=== PATIENT | female | born 1955 | race Caucasian/White ===

== ENCOUNTER → 2019-12-16 13:15 | Outpatient (CLI) | payer OTHER, SELFPAY ==
--- NOTE | ~2019-12-16 | XR_ITS ---
EXAMINATION: XR shoulder RT min 2V EXAM DATE: 12/16/2019 13:33 INDICATION: No known recent injury provided at this time. Pain of the right shoulder. TECHNIQUE: The following right shoulder projections obtained: frontal projection with internal rotati on, frontal projection with external rotation, Grashey, and axillary (4+ views). There is no prior s tudy for comparison. FINDINGS: No evidence of right shoulder rotator cuff calcific tendinosis. Mild glenohumeral, modera te acromioclavicular primary osteoarthritis. There are no acute fractures or dislocations identified. There is no subcutaneous gas. The soft tissue is unremarkable. There are no radiopaque foreign b odies. IMPRESSION: Mild to moderate right shoulder osteoarthritis. Reviewed, dictated and finalized at location A. AVER RUBBER
== END ==
PROVIDERS: Visit Provider Pain Medicine Interventional Pain Medicine
DX: G89.4 Chronic pain syndrome (principal); M19.011 Primary osteoarthritis, right shoulder
CPT/HCPCS: 73030

== ENCOUNTER → 2020-08-23 15:11 | Outpatient (CLI) | payer OTHER, SELFPAY ==
--- NOTE | ~2020-08-23 | XR_ITS ---
XR lumbar spine 2-3V 08/23/2020 15:51 Indication: Radiculopathy. Back pain. Procedure: 4 views lumbar spine Comparison: 07/24/2011 Findings: Study is significantly limited by patient body habitus. L4 and L5 no well visualized. There are surgical changes consistent with anterior fusion and discectomy at L3-4 and L4-5. Normal alignme nt. No gross fracture or malalignment. Pedicles intact. Impression: 1: Anterior lumbar fusion and discectomy at L3-4 and L4-5. Normal alignment. Reviewed, dictated and finalized at location A. Impression: 1: Anterior lumbar fusion and discectomy at L3-4 and L4-5. Normal alignment.
--- NOTE | ~2020-08-23 | XR_ITS ---
XR cervical spine 4-5V 08/23/2020 15:51 Indication: Radiculopathy Procedure: 4 view cervical spine Comparison: 11/22/2018 Findings: Straightening of cervical lordosis. There is mild multilevel facet hypertrophy. No fracture or traumatic malalignment. Small ventral osteophytes at multiple levels. No prevertebral soft tissue swelling. Odontoid process within normal limits. Impression: 1: Mild cervical spondylosis. Reviewed, dictated and finalized at location A. Impression: 1: Mild cervical spondylosis.
== END ==
PROVIDERS: Visit Provider Pain Medicine Interventional Pain Medicine
DX: M47.812 Spondylosis without myelopathy or radiculopathy, cervical region (principal); G89.4 Chronic pain syndrome; M54.16 Radiculopathy, lumbar region; Z98.1 Arthrodesis status
CPT/HCPCS: 72050; 72100

== ENCOUNTER → 2021-08-20 10:40 | Outpatient (CLI) | payer OTHER, SELFPAY ==
--- NOTE | ~2021-08-20 | XR_ITS ---
EXAMINATION: XR knee RT 2V DATE: 08/20/2021 11:03 INDICATION: Right knee pain. TECHNIQUE: 2 views of right knee standing were obtained. COMPARISON: None. FINDINGS: Bone alignment is normal. No fracture. There is moderate osteoarthritis of medial and padilla lofemoral compartments and mild osteoarthritis of lateral compartment. No knee joint effusion. IMPRESSION: 1. Moderate right knee osteoarthritis. Reviewed, dictated and finalized at location A.
--- NOTE | ~2021-08-20 | XR_ITS ---
EXAMINATION: XR knee LT 2V DATE: 08/20/2021 11:03 INDICATION: Left knee pain. TECHNIQUE: 2 views of left knee standing were obtained. COMPARISON: None. FINDINGS: Bone alignment is normal. No fracture. There is moderate osteoarthritis of medial and padilla lofemoral compartments and mild osteoarthritis of lateral compartment. No knee joint effusion. IMPRESSION: 1. Moderate left knee osteoarthritis. Reviewed, dictated and finalized at location A.
== END ==
PROVIDERS: Visit Provider Pain Medicine Interventional Pain Medicine
DX: M17.0 Bilateral primary osteoarthritis of knee (principal)
CPT/HCPCS: 73560

== ENCOUNTER → 2021-10-24 12:17 | Outpatient (CLI) | payer OTHER, SELFPAY ==
--- NOTE | ~2021-10-24 | XR_ITS ---
EXAMINATION:XR cervical spine 4-5V DATE: 10/24/2021 13:24 INDICATION: Neck pain TECHNIQUE: AP, lateral, lateral swimmers and odontoid views of the cervical spine are provided. COMPARISON: 11/22/2018 FINDINGS: There is straightening of the cervical spine. Bone alignment is normal. The odontoid is int act. No fracture is identified. The vertebral body heights are maintained. There is mild loss of inte rvertebral disc space height at C4-5 and C5-6. There is moderate multilevel facet and uncovertebral j oint osteoarthritis. Prevertebral soft tissues are normal. Small degenerative osteophytes project fro m the anterior endplates of multiple vertebral bodies. IMPRESSION: 1. Moderate cervical spondylosis without acute findings or significant interval change. Reviewed, dictated and finalized at location F. EXPERIENCE RESEARCHER
--- NOTE | ~2021-10-24 | XR_ITS ---
EXAMINATION: XR lumbar spine 2-3V DATE: 10/24/2021 13:24 INDICATION: Low back pain TECHNIQUE: Anteroposterior and lateral views of the lumbar spine, and cone-down lateral view of the l umbosacral junction were obtained. COMPARISON: 08/23/2020 FINDINGS: There are changes of anterior fusion with interbody device placement at L3-4 and L4-5. The vertebral body heights are maintained. There is no fracture. There is moderate loss of intervertebral disc space height at L1-2. Small degenerative osteophytes project from the anterior endplates of mul tiple vertebral bodies. Moderate facet osteoarthritis is noted in the lower lumbar spine. IMPRESSION: 1. Changes of anterior fusion procedure at L3-4 and L4-5 without acute findings or significant interv al change. Mild spondylosis. Reviewed, dictated and finalized at location F. IOPULMONARY TECHNOLOGIST CHIEF IMPRESSION: 1. Changes of anterior fusion procedure at L3-4 and L4-5 without acute findings or significant interval change. Mild spondylosis.
== END ==
PROVIDERS: Visit Provider Pain Medicine Interventional Pain Medicine
DX: M47.27 Other spondylosis with radiculopathy, lumbosacral region (principal); M25.512 Pain in left shoulder; Z98.1 Arthrodesis status; M47.22 Other spondylosis with radiculopathy, cervical region
CPT/HCPCS: 72050; 72100

== ENCOUNTER → 2022-11-24 10:28 | Outpatient (CLI) | payer OTHER, SELFPAY ==
--- NOTE | ~2022-11-24 | XR_ITS ---
EXAMINATION: XR shoulder LT min 2V DATE: 11/24/2022 11:34 INDICATION: Left shoulder pain. TECHNIQUE: 4 views of left shoulder were obtained. COMPARISON: None. FINDINGS: Bone alignment is normal. No fracture. There is mild osteoarthritis of glenohumeral joint a nd moderate osteoarthritis of acromioclavicular joint. IMPRESSION: 1. Polyarticular osteoarthritis. Reviewed, dictated and finalized at location A. E EXAMINER
--- NOTE | ~2022-11-24 | XR_ITS ---
EXAMINATION: XR lumbar spine 2-3V DATE: 11/24/2022 11:34 INDICATION: Lumbosacral radiculopathy. TECHNIQUE: 3 views of lumbar spine were obtained. COMPARISON: Lumbar spine MRI 10/08/2018 FINDINGS: There is 7 degrees levocurvature of lumbar spine. There are changes of anterior fusion proc edures at L3-L4 and L4-L5 with interbody devices and anterior plate and screws. There is mild chronic anterior wedging of L1 vertebral body. There is mildly decreased disc height at L1-L2. There is dee dee re facet joint osteoarthritis in lower lumbar spine. IMPRESSION: 1. Mild lumbar spondylosis. 2. Anterior fusion procedures at L3-L4 and L4-L5. Reviewed, dictated and finalized at location A. PENDENT LIVING ADVISOR
--- NOTE | ~2022-11-24 | XR_ITS ---
EXAMINATION: XR knee LT 2V DATE: 11/24/2022 11:33 INDICATION: Left knee pain. TECHNIQUE: 2 views of left knee standing were obtained. COMPARISON: Left knee radiographs 08/20/2021 FINDINGS: Bone alignment is normal. No fracture. There is moderate osteoarthritis of medial compartme nt, mild osteoarthritis of lateral compartment, and severe osteoarthritis of patellofemoral compartme nt. No knee joint effusion. IMPRESSION: 1. Severe left knee osteoarthritis. Reviewed, dictated and finalized at location A. ISHER
--- NOTE | ~2022-11-24 | XR_ITS ---
EXAMINATION: XR shoulder RT min 2V DATE: 11/24/2022 11:34 INDICATION: Right shoulder pain. TECHNIQUE: 4 views of right shoulder were obtained. COMPARISON: Right shoulder radiographs 12/16/2019 FINDINGS: Bone alignment normal. No fracture. There is mild osteoarthritis of glenohumeral joint and acromioclavicular joint. IMPRESSION: 1. Mild polyarticular osteoarthritis. Reviewed, dictated and finalized at location A. HMALLOW MACHINE WORKER
--- NOTE | ~2022-11-24 | XR_ITS ---
EXAMINATION: XR knee RT 2V DATE: 11/24/2022 11:33 INDICATION: Right knee pain. TECHNIQUE: 2 views of right knee standing were obtained. COMPARISON: Right knee radiographs 08/20/2021 FINDINGS: Bone alignment is normal. There is moderate osteoarthritis of medial and patellofemoral com partments and mild osteoarthritis of lateral compartment. No knee joint effusion. IMPRESSION: 1. Moderate right knee osteoarthritis. Reviewed, dictated and finalized at location A. EE WEIGHER
--- NOTE | ~2022-11-24 | XR_ITS ---
EXAMINATION: XR_CERV2-3V_CR DATE: 11/24/2022 11:34 INDICATION: Cervical radiculopathy. TECHNIQUE: 3 views of cervical spine on 4 radiographs were obtained. COMPARISON: Cervical spine radiographs 10/24/2021 FINDINGS: There is hypolordosis of cervical spine. Vertebral body heights are normal. There is mildly decreased disc height at C5-C6. There is multilevel mild to moderate facet joint osteoarthritis. No central canal stenosis or prevertebral soft tissue swelling. IMPRESSION: 1. Mild cervical spondylosis. Reviewed, dictated and finalized at location A. OPERATOR
== END ==
PROVIDERS: Visit Provider Pain Medicine Interventional Pain Medicine
DX: M19.012 Primary osteoarthritis, left shoulder (principal); M47.896 Other spondylosis, lumbar region; Z98.1 Arthrodesis status; M47.22 Other spondylosis with radiculopathy, cervical region; M47.26 Other spondylosis with radiculopathy, lumbar region; M19.011 Primary osteoarthritis, right shoulder; M17.0 Bilateral primary osteoarthritis of knee
CPT/HCPCS: 72040; 72100; 73030; 73560

== ENCOUNTER → 2023-12-02 11:57 | Outpatient (CLI) | payer MEDICARE, SELFPAY ==
--- NOTE | ~2023-12-02 | XR_ITS ---
Left Shoulder Technique: AP and axillary views were obtained. Clinical History: Pain Findings: No fracture or dislocation is seen. Osseous alignment is anatomic. The glenohumeral and acr omioclavicular joint spaces are preserved. Soft tissues are unremarkable. Impression: Unremarkable left shoulder radiographs. Reviewed, dictated and finalized at [facility]. ICULUM SPECIALIST Impression: Unremarkable left shoulder radiographs.
--- NOTE | ~2023-12-02 | XR_ITS ---
Lumbosacral Spine: AP and lateral views Clinical History: Pain Findings: The normal lordotic curve is maintained. The vertebral bodies and posterior elements are i ntact. The intervertebral disc spaces are preserved. There is anterior interbody fusion from L3 to L 4 and L4-L5. There is advanced facet arthropathy at L4-L5 and L5-S1. There is moderate degenerative d isc narrowing at T12-L1 and L1-L2. The sacroiliac joints are normally outlined. Impression: Anterior and interbody fusion from L3 to L4 and L4-L5. Additional degenerative change, as above. Reviewed, dictated and finalized at location M. ANICAL DESIGN TECHNICIAN Impression: Anterior and interbody fusion from L3 to L4 and L4-L5. Additional degenerative change, as above.
--- NOTE | ~2023-12-02 | XR_ITS ---
Cervical Spine: AP, lateral, open-mouth views Clinical History: Pain Findings: There is straightening of the normal cervical lordosis. No fracture or subluxation evident. There are mild degenerative disc changes and mild facet arthropathy in the cervical spine. Pre-verte bral soft tissues are unremarkable. Impression: Straightening of the normal cervical lordosis and mild degenerative spondylosis, as above. Reviewed, dictated and finalized at location . ON PICTURE NARRATOR Impression: Straightening of the normal cervical lordosis and mild degenerative spondylosis , as above.
--- NOTE | ~2023-12-02 | XR_ITS ---
Right Shoulder Technique: AP and axillary views were obtained. Clinical History: Pain Findings: No fracture or dislocation is seen. Osseous alignment is anatomic. The glenohumeral and acr omioclavicular joint spaces are preserved. Soft tissues are unremarkable. Impression: Unremarkable right shoulder radiographs. Reviewed, dictated and finalized at [facility]. IS CENTRE MANAGER Impression: Unremarkable right shoulder radiographs.
--- NOTE | ~2023-12-02 | XR_ITS ---
Left Knee Technique: AP, lateral, and sunrise views were obtained. Clinical History: Pain Findings: No fracture or dislocation is seen.. There is moderate to advanced tricompartmental degener ative change, with medial compartment narrowing. Soft tissues are unremarkable. No joint effusion is seen. Impression: Moderate to advanced tricompartmental degenerative change, with medial compartment narrowing. Reviewed, dictated and finalized at location . TRIMMER Impression: Moderate to advanced tricompartmental degenerative change, with medial compartm ent narrowing.
--- NOTE | ~2023-12-02 | XR_ITS ---
Right Knee Technique: AP and lateral views were obtained. Clinical History: Pain Findings: No fracture or dislocation is seen. There is moderate to advanced tricompartmental degenera tive change. There is probable mild narrowing of the medial and patellofemoral compartments.. Soft ti ssues are unremarkable. No joint effusion is seen. Impression: Moderate to advanced degenerative change, as detailed above. Reviewed, dictated and finalized at location M. HER Impression: Moderate to advanced degenerative change, as detailed above.
== END ==
PROVIDERS: PCP Pain Medicine Interventional Pain Medicine; Visit Provider Pain Medicine Interventional Pain Medicine
DX: M54.12 Radiculopathy, cervical region (principal); M54.17 Radiculopathy, lumbosacral region; M17.0 Bilateral primary osteoarthritis of knee; Z98.1 Arthrodesis status; M51.36 Other intervertebral disc degeneration, lumbar region; M25.511 Pain in right shoulder; M25.512 Pain in left shoulder
CPT/HCPCS: 72050; 72100; 73030; 73560

== ENCOUNTER 2025-01-19 12:39 | Outpatient (CLI) | payer MEDICARE, SELFPAY ==
--- NOTE | ~2025-01-19 | XR_ITS ---
XR knee RT 3V 01/19/2025 13:13 Indication: Right knee pain Procedure: 3 views right knee Comparison: 11/24/2022 Findings: There is severe tricompartment osteoarthritis. No fracture or traumatic malalignment. No si gnificant joint effusion. Impression: 1: Severe tricompartment osteoarthritis. Reviewed, dictated and finalized at location A. Impression: 1: Severe tricompartment osteoarthritis.
--- NOTE | ~2025-01-19 | XR_ITS ---
3 VIEWS LUMBAR SPINE Ordering provider: Suhas Funez, History: . Osteoarthritis of knee, unspecified . Comparison: December 02, 2023 FINDINGS: VERTEBRAL BODIES:Postoperative changes at the level of L3, L4 and L5. No visible fracture or subluxa tion. Degenerative changes of the spine. Mild levoscoliosis. Mild compression seen in T11 and T12 which is chronic and unchanged. DISK SPACES: Narrowing of the disc L1-L2, L2-L3 and L5-S1. Facet joint disease at the level of L4-L5 and L5-S1 SOFT TISSUES: Normal. IMPRESSION: No acute osseous abnormality lumbar spine. Postoperative changes in the lower lumbar area. Multilevel degenerative disc disease. Reviewed, dictated and finalized at location A.
--- NOTE | ~2025-01-19 | XR_ITS ---
XR knee LT 3V 01/19/2025 13:13 Indication: Osteoarthritis of the knee Procedure: 3 views left knee Comparison: 11/24/2022 Findings: Severe tricompartment osteoarthritis of the left knee. No fracture or traumatic malalignmen t. No significant joint effusion. Impression: 1: Severe tricompartment osteoarthritis of the left knee. Reviewed, dictated and finalized at location A. Impression: 1: Severe tricompartment osteoarthritis of the left knee.
--- NOTE | ~2025-01-19 | XR_ITS ---
XR_CERV2-3V_CR Ordering provider: Suhas Funez, History: . Osteoarthritis of knee, unspecified . Comparison: December 02, 2023. FINDINGS: VERTEBRAL BODIES: Normal height and alignment. No visible fracture or subluxation. The dens is intact . Degenerative changes of the spine. DISK SPACES: Well maintained. Multilevel facet joint disease. Multilevel uncovertebral joint osteoarthritic changes. PARASPINOUS SOFT TISSUES: No prevertebral soft tissue swelling. IMPRESSION: No acute osseous abnormality cervical spine. Multilevel facet joint disease. Multilevel uncovertebral joint osteoarthritic changes. Reviewed, dictated and finalized at location A. IMPRESSION: No acute osseous abnormality cervical spine. Multilevel facet joint disease. Multilevel uncovertebral joint osteoarthritic c hanges.
== END 2025-01-19 12:40 | disposition home or self-care (01) ==
LOC: MICIMG 12:43
PROVIDERS: PCP Pain Medicine Interventional Pain Medicine; Visit Provider Pain Medicine Interventional Pain Medicine
DX: M54.12 Radiculopathy, cervical region (principal); M54.16 Radiculopathy, lumbar region; G89.4 Chronic pain syndrome; M51.369 Other intervertebral disc degeneration, lumbar region without mention of lumbar back pain or lower extremity pain; M50.30 Other cervical disc degeneration, unspecified cervical region; M17.0 Bilateral primary osteoarthritis of knee
CPT/HCPCS: 72040; 72100; 73562

== ENCOUNTER 2025-05-10 13:44 | Outpatient (CLI) | payer MEDICARE, SELFPAY ==
--- NOTE | ~2025-05-10 | XR_ITS ---
EXAM: XR thoracic spine 3V DATE: 05/10/2025 14:03 HISTORY: Radiculopathy, thoracic region . COMPARISON: None available. FINDINGS: Decreased mineralization. Mild scoliosis. Vertebral body alignment intact. Vertebral body h eights preserved. Multilevel mild disc space narrowing and marginal osteophytosis. No traumatic malal ignment or fracture. Visualized lung parenchyma is clear. IMPRESSION: Osteopenia. Mild multilevel thoracic degenerative disc disease. If pain persists, recomme nd MRI or CT of the thoracic spine for further evaluation. Reviewed, dictated and finalized at location K. IMPRESSION: Osteopenia. Mild multilevel thoracic degenerative disc disease. If pain persists, recommend MRI or CT of the thoracic spine for further evaluation .
== END 2025-05-10 13:45 | disposition home or self-care (01) ==
PROVIDERS: PCP Allergy & Immunology; Visit Provider Pain Medicine Interventional Pain Medicine
DX: M85.80 Other specified disorders of bone density and structure, unspecified site (principal); M51.34 Other intervertebral disc degeneration, thoracic region
CPT/HCPCS: 72072